=== PATIENT | female | born 1960 | race Caucasian/White ===

== ENCOUNTER 2018-08-17 16:04 | Emergency (ER) | payer MEDICAID, OTHER ==
[~2018-08-17] VITALS: Ht 165.1 cm; Wt 72.6 kg
[2018-08-17 16:21] VITALS: BP 110/81
[2018-08-17] MEDS ORDERED: KETOROLAC TROMETH 60MG/2ML VIAL IM ONE (17:00)
== END 2018-08-17 17:30 | disposition home or self-care (01) ==
LOC: ER 16:04
DX: M25.562 Pain in left knee (principal); M25.561 Pain in right knee; Z88.5 Allergy status to narcotic agent; Z88.0 Allergy status to penicillin; Z88.8 Allergy status to other drugs, medicaments and biological substances; Z91.040 Latex allergy status; Z90.49 Acquired absence of other specified parts of digestive tract; Z90.710 Acquired absence of both cervix and uterus
CPT/HCPCS: 73562; 96372; 99283; J1885